=== PATIENT | male | born 1955 | race Caucasian/White ===

== ENCOUNTER 2021-01-27 09:16 | Emergency (ER) | payer MEDICARE ==
[~2021-01-27] VITALS: Ht 175.3 cm; Wt 75.0 kg
[~2021-01-27 09:16] MED LIST: FLEXERIL OR; NAPROSYN375 MG PO; NAPROSYN500 MG OR; NO MEDS; PERCOCET 5/325M1 TAB OR; PERCOCET1 TA4 PO; ULTRAM50 MG OR
[2021-01-27 10:01] VITALS: BP 113/58
[2021-01-27 10:02] LABS: IMMATURE GRANULOCYTES 4.3 % (0.0-5.0); MEAN CORPUSCULAR HGB 34.9 pG CALC (26.0-32.0); MEAN CORPUSCULAR HGB CONC 30.9 g/dL CAL (32.0-36.0); NEUT# 8.96 thou/uL (1.82-7.42); RED BLOOD COUNT 2.29 mill/uL (4.70-6.10); RED CELL DISTRI WIDTH 13.4 % (11.5-15.5)
[2021-01-27 10:06] VITALS: BP 115/54
[2021-01-27 10:06] LABS: HEMATOCRIT 25.9 % (39.0-50.0); MEAN CELL VOLUME 113.1 fL CALC (80.0-100.0)
[2021-01-27 10:10] VITALS: BP 100/52
[2021-01-27 10:11] LABS: CREATININE 1.5 mg/dL (0.7-1.3); POTASSIUM 4.4 mmol/l (3.5-5.1)
[2021-01-27 10:18] VITALS: BP 99/51
[2021-01-27 10:23] LABS: ALBUMIN 1.9 g/dL (3.2-5.0); BILIRUBIN, TOTAL 1.2 mg/dL (0.0-1.4); TOTAL PROTEIN 4.7 g/dL (6.3-8.2)
--- NOTE | 2021-01-27 10:59 | NUR ---
PT INTUBATED BY EMS IN THE [facility]. BBS CONFIRMED. PT PLACED ON INVASIVE MECHANICAL VENTILATOR UPON ARRIVAL TO ED. ONEL SETTINGS WELL. SUPERVISOR HIDE HOUSE TO MONITOR.
[2021-01-27 11:45] VITALS: BP 102/48
== END 2021-01-27 11:45 | disposition short-term general hospital (02) ==
LOC: ED 09:16
PROVIDERS: Family Medicine
PROC: 30243N1 Transfusion of Nonautologous Red Blood Cells into Central Vein, Percutaneous Approach (ICD-10-PCS; principal; 2021-01-27)
PROC: 30243N1 Transfusion of Nonautologous Red Blood Cells into Central Vein, Percutaneous Approach (ICD-10-PCS; 2021-01-27)
PROC: 0T9B70Z Drainage of Bladder with Drainage Device, Via Natural or Artificial Opening (ICD-10-PCS; 2021-01-27)
PROC: 02HV33Z Insertion of Infusion Device into Superior Vena Cava, Percutaneous Approach (ICD-10-PCS; 2021-01-27)
DX: K92.0 Hematemesis (principal); K92.1 Melena; D64.9 Anemia, unspecified; R40.4 Transient alteration of awareness; J96.00 Acute respiratory failure, unspecified whether with hypoxia or hypercapnia; I95.9 Hypotension, unspecified; S00.81XA Abrasion of other part of head, initial encounter; R79.89 Other specified abnormal findings of blood chemistry; X58.XXXA Exposure to other specified factors, initial encounter; Y92.009 Unspecified place in unspecified non-institutional (private) residence as the place of occurrence of the external cause; F17.200 Nicotine dependence, unspecified, uncomplicated
CPT/HCPCS: J2354; P9016; S0164